=== PATIENT | female | born 1960 | race Caucasian/White ===

== ENCOUNTER 2017-11-11 13:07 | Inpatient (IN) | payer MEDICAID ==
[~2017-11-11] VITALS: Ht 180.3 cm; Wt 26.3 kg
[2017-11-11] MEDS ORDERED: SUMA100T PO (18:54)
[2017-11-11] MEDS ORDERED: HYDR-305 PO (18:54)
[2017-11-11] MEDS ORDERED: CLON1 PO (18:54)
[2017-11-11] MEDS ORDERED: OMEP20 PO (18:54)
[2017-11-11] MEDS ORDERED: HALOPERIDOL 5 MG TABLET PO PRN (19:00)
[2017-11-11 19:15] VITALS: BP 141/86
[2017-11-11] MEDS: ZOLPIDEM TARTRATE 10 MG TABLET PO PRN (20:59)
[2017-11-12 03:56] VITALS: BP 113/70
[2017-11-12] MEDS: LORazepam 2 MG TABLET PO PRN ×2 (06:48→14:52)
[2017-11-12 07:37] LABS: BASOPHILS # (AUTO) 0.02 K/uL (0.00-0.20); BASOPHILS % (AUTO) 0.3 % (0.0-2.0); EOSINOPHILS # (AUTO) 0.07 K/uL (0.00-0.70); EOSINOPHILS % (AUTO) 0.86 % (1.0-6.0); HEMATOCRIT 46.5 % (36-46); HEMOGLOBIN 15.8 g/dL (12.0-16.0); LYMPHOCYTES # (AUTO) 2.5 K/uL (1.0-4.8); LYMPHOCYTES % (AUTO) 30.2 % (22.0-44.0); MEAN CORPUSCULAR HGB CONC 33.9 G/dL (31.0-37.0); MEAN CORPUSCULAR VOLUME 86 fL (80-100); MONOCYTES # (AUTO) 0.5 K/uL (0.1-1.0); MONOCYTES % (AUTO) 5.5 % (2.0-9.0); NEUTROPHILS # (AUTO) 5.3 K/uL (1.8-7.7); NEUTROPHILS % (AUTO) 63.2 % (40.0-70.0); PLATELET COUNT (AUTO) 260 K/uL (150-450); RED BLOOD CELL COUNT(AUTO) 5.44 MIL/uL (4.00-5.20); RED CELL DISTRIBUTION WIDTH 13.2 % (11.5-14.5); WHITE BLOOD COUNT (AUTO) 8.4 K/uL (4.5-11.0)
[2017-11-12] MEDS ORDERED: BENZOCAINE/MENTHOL LOZENGE MM PRN (08:00)
[2017-11-12] MEDS ORDERED: LOPERAMIDE HCL 2 MG CAPSULE PO PRN (08:00)
[2017-11-12] MEDS ORDERED: PETROLATUM,WHITE 71 GM JELLY TP PRN (08:00)
[2017-11-12] MEDS ORDERED: IBUPROFEN 600 MG TABLET PO PRN (08:00)
[2017-11-12] MEDS ORDERED: ONDANSETRON HCL 4 MG TABLET PO PRN (08:00)
[2017-11-12] MEDS ORDERED: MAGNESIUM HYDROXIDE SUSPENSION 30 ML UDCUP PO PRN (08:00)
[2017-11-12] MEDS ORDERED: BACITRACIN 28.4 GM OINTMENT TP PRN (08:00)
[2017-11-12] MEDS ORDERED: ALBUTEROL SULFATE HFA 90 MCG/PUFF 8 GM INHALER IH PRN (08:00)
[2017-11-12] MEDS ORDERED: CloNIDine HCL 0.1 MG TABLET PO PRN (08:00)
[2017-11-12 08:13] LABS: HEMOGLOBIN A1C 5.6 % (4.5-6.2)
[2017-11-12 08:26] VITALS: BP 112/61
[2017-11-12 08:44] LABS: ALANINE AMINOTRANSFERASE 17 U/L (12-78); ALBUMIN 4.6 g/dL (3.4-5.0); ANION GAP 8 mmol/L (8-16); ASPARTATE AMINOTRANSFERASE 13 U/L (15-37); BILIRUBIN,TOTAL 1.1 mg/dL (0.1-1.0); CARBON DIOXIDE 31 mmol/L (22-29); CHLORIDE 103 mmol/L (98-107); CHOL/HDL RATIO 2.6 (3.9-5.7); CREATININE 0.85 mg/dL (0.60-1.30); GLOMERULAR FILTR. RATE CALC > 60 mL/min (>60); SODIUM SERUM 142 mmol/L (136-145); THYROID STIMULATING HORMONE 1.04 uIU/mL (0.36-3.74); TOTAL PROTEIN, SERUM 7.4 g/dL (6.4-8.2); UREA NITROGEN, BLOOD 15 mg/dL (7-18)
[2017-11-12] MEDS ORDERED: OMEPRAZOLE 20 MG CAPSULE PO SCH (09:00)
[2017-11-12] MEDS: NICOTINE 21 MG/24 HOUR PATCH TD SCH (09:10)
[2017-11-12] MEDS: MAG HYDROX/AL HYDROX/SIMETH ES 30 ML SUSPENSION UDCUP PO PRN ×2 (09:10→16:30)
[2017-11-12] MEDS: DOCUSATE SODIUM 100 MG CAPSULE PO SCH (09:34)
[2017-11-12 16:00] VITALS: BP 121/66
[2017-11-12] MEDS: DULoxetine HCL 30 MG CAPSULE PO SCH (16:23)
[2017-11-13 00:20] VITALS: BP 100/60
[2017-11-13] MEDS: ZOLPIDEM TARTRATE 10 MG TABLET PO PRN ×2 (00:21→20:00)
[2017-11-13 04:10] VITALS: BP 100/60
[2017-11-13] MEDS: NICOTINE 21 MG/24 HOUR PATCH TD SCH (08:22)
[2017-11-13] MEDS: OMEPRAZOLE 20 MG CAPSULE PO SCH (08:22)
[2017-11-13] MEDS: LORazepam 2 MG TABLET PO PRN ×2 (08:23→16:05)
[2017-11-13 08:24] VITALS: BP 120/86
[2017-11-13] MEDS: DULoxetine HCL 30 MG CAPSULE PO SCH ×2 (08:25→16:05)
[2017-11-13] MEDS: DOCUSATE SODIUM 100 MG CAPSULE PO SCH (08:30)
[2017-11-13 09:05] LABS: APPEARANCE,URINE TURBID (CLEAR); GLUCOSE, URINE (UA) NEGATIVE (NEGATIVE); KETONES,URINE TRACE mg/dL (NEGATIVE); LEUKOCYTE ESTERASE ,URINE SMALL (NEGATIVE); OCCULT BLOOD,URINE NEGATIVE (NEGATIVE); PROTEIN,URINE NEGATIVE (NEGATIVE)
[2017-11-13 09:51] LABS: ADD UA MICROSCOPIC YES
[2017-11-13 10:43] LABS: RBC,URINE None Seen /HPF (0-2); SQUAMOUS EPITHELIAL CELL,UR Few /LPF (None Seen); WBC,URINE 0-2 /HPF (0-5)
[2017-11-13] MEDS: CIPROFLOXACIN HCL 250 MG TABLET PO SCH (16:05)
[2017-11-13 16:42] VITALS: BP 138/80
[2017-11-14 06:30] VITALS: BP 119/59
[2017-11-14] MEDS: OMEPRAZOLE 20 MG CAPSULE PO SCH (06:41)
[2017-11-14] MEDS: CIPROFLOXACIN HCL 250 MG TABLET PO SCH (08:19)
[2017-11-14] MEDS: DULoxetine HCL 30 MG CAPSULE PO SCH (08:19)
[2017-11-14] MEDS: DOCUSATE SODIUM 100 MG CAPSULE PO SCH (08:20)
[2017-11-14] MEDS: NICOTINE 21 MG/24 HOUR PATCH TD SCH (08:20)
[2017-11-14 08:47] VITALS: BP 118/89
[2017-11-14 08:51] VITALS: BP 118/89
[2017-11-14] MEDS: LORazepam 2 MG TABLET PO PRN (09:37)
[2017-11-14] MEDS ORDERED: DSS100 PO (12:38)
[2017-11-14] MEDS ORDERED: DULO30CA2 PO (12:38)
[2017-11-14] MEDS ORDERED: CIPR-278 PO (12:38)
== END 2017-11-14 13:35 | disposition home or self-care (01) | DRG 754 ==
LOC: B2S 19:07
PROVIDERS: ADMIT Psychiatry & Neurology Psychiatry; ATTEND Psychiatry & Neurology Psychiatry
DX: F32.9 Major depressive disorder, single episode, unspecified (principal); R45.851 Suicidal ideations; J44.9 Chronic obstructive pulmonary disease, unspecified; F41.9 Anxiety disorder, unspecified; F17.200 Nicotine dependence, unspecified, uncomplicated; T39.1X2A Poisoning by 4-Aminophenol derivatives, intentional self-harm, initial encounter; G47.00 Insomnia, unspecified; N39.0 Urinary tract infection, site not specified; M54.5 Low back pain; Z88.5 Allergy status to narcotic agent; Z79.899 Other long term (current) drug therapy; Z91.012 Allergy to eggs; Z88.6 Allergy status to analgesic agent; Y92.89 Other specified places as the place of occurrence of the external cause
CPT/HCPCS: 80307; 83036; 84439; 84443; 87081; 87086